=== PATIENT | female | born 1960 | race Asian ===

== ENCOUNTER 2019-05-07 12:56 | Emergency (ER) | payer SELFPAY ==
--- NOTE | 2019-05-07 13:05 | ED ---
Psychiatric Complaint - HPI Summary HPI Summary: This pt is a 59 Y/O F brought in by EMS to [facility] for an attempted suicide due to depression and recent stress, that occurred [employer]. The pt states that she has recently moved to [place] and has not been able to fit in with her community. She also has been having financial troubles back in [place] due to moving into a new house. Her son states that she owes the bank a lot of money. She recently found out that her son got and does not approve of the marriage and has been having difficulties with coming to terms about it. Her son states that she was venting about how difficult her life was and stating that she wanted a grandchild and her son wasnt able to give her that. She states that she is present in [place] for another month before heading home. She states that she does not have enough time to talk to her son due to his job. She states that after all these factors came together she attempted to strangle herself with her necklace before her son called EMS. Her son states that she was pulling her hair out and hitting herself in the head with a shoe. She also was lying on the ground hitting the ground. She states that she was shocked that her son reported her to the police. She states that she feels very embarrassed and ashamed. She states that she has no previous or chronic psychiatric illness. She has never been admitted to a hospital. She states that she takes sleeping pills occasionally. She denies any SOB, CP, SI, HI, headaches, fevers, chills, N /V, abdominal pains, and weakness. She states that she has had no alleviating factors. She states that she wants no additional check-up here since she is home in about a month. Her medications and allergies were reviewed. Her son states that she was recommended to be hospitalized for mental health issues. - History Of Current Complaint Hx Obtained From: Patient, Forging Roll Operator - Kavitha ?: No Onset/Duration: Gradual Onset - 2 months, since arriving in [place] Timing: Constant Severity Initially: Moderate Severity Currently: Severe Character: Depressed Aggravating Factor(s): Recent Stress Alleviating Factor(s): Nothing Related History: Negative For: Prior Psychiatric Issues Has Suicidal: Reports: Has Prior Attempt(s) - 1 attmept, states that she tried to strangle herself with her necklace [employer].. Denies: Thoughts, With A Plan Has Homicidal: Denies: Thoughts, With A Plan Recent Stressor(s): issues with [id number], being unable to speak upper sorbian, - Allergies/Home Medications Allergies/Adverse Reactions: Allergies Allergy/AdvReac Type Severity Reaction Status Date / Time No Known Allergies Allergy Verified 05/07/19 13:30 Home Medications: Home Medications NK [No Home Medications Reported] 05/07/19 [History Confirmed 05/07/19] PMH/Surg Hx/FS Hx/Imm Hx Previously Healthy: Yes Endocrine/Hematology History: Denies: Hx Diabetes Cardiovascular History: Reports: Hx Hypertension Sensory History: Denies: Hx Contacts or Glasses, Hx Legally Blind Opthamlomology History: Denies: Hx Contacts or Glasses, Hx Legally Blind Psychiatric History: Denies: Hx Inpatient Treatment, Hx Suicide Attempt - Surgical History Surgical History: None Infectious Disease History: Denies: Traveled Outside the [place] in Last 30 Days - Family History Known Family History: Positive: Hypertension - Social History Occupation: Retired Lives: With Family Alcohol Use: None Hx Substance Use: No Substance Use Type: Reports: None Hx Tobacco Use: No Smoking Status (MU): Never Smoked Tobacco Review of Systems Negative: Fever, Chills Negative: Chest Pain Negative: Shortness Of Breath Negative: Abdominal Pain, Vomiting, Nausea Musculoskeletal: Negative - neck pain Negative: Headache, Weakness Psychological: Other - stressed, embarassed, ashamed Positive: Depressed, Other - Negative: SI and HI All Other Systems Reviewed And Are Negative: Yes Physical Exam Triage Information Reviewed: Yes Vital Signs Reviewed: Yes Re-Evaluation - Re-Evaluation First Eval Re-Evaluation Time: 13:24 Comment: Her son states that her plane ticket will be changed to a sooner date Course/Dx - Course Course Of Treatment: Patient is here after getting in an argument with her son and doing some self harm. Patient denies any suicidal thoughts or actions here. Patient is from [place] and is having a hard time assimilating the culture and excepting her son's partner. Patient was involved by psychiatry who deemed her safe for discharge. - Differential Dx/Clinical Impression Provider Diagnosis: Mood disorder - Physician Notifications Discussed Care Of Patient With: Wilder Greene Time Discussed With Above Provider: 15:14 Instructed by Provider To: Other - discharge Discharge ED - Sign-Out/Discharge Documenting (check all that apply): Patient Departure - discharge Patient Received Moderate/Deep Sedation with Procedure: No - Discharge Plan Condition: Stable Disposition: HOME Referrals: No Primary Care Phys,NOPCP [Primary Care Provider] - - Billing Disposition and Condition Condition: STABLE Disposition: Home - Attestation Statements Document Initiated by Scribe: Yes Documenting Scribe: Shaggy Osuna Provider For Whom Scribe is Documenting (Include Credential): Brown Navarrete Scribe Attestation: Shaggy Garber, scribed for Brown Navarrete on 05/07/19 at 1638. Scribe Documentation Reviewed: Yes Provider Attestation: The documentation as recorded by the Shaggy fallon accurately reflects the service I personally performed and the decisions made by Brown clement Status of Scribe Document: Viewed
[2019-05-07 15:24] VITALS: BP 150/75
== END 2019-05-07 15:23 | disposition home or self-care (01) ==
LOC: ED 12:56
DX: F39 Unspecified mood [affective] disorder (principal); F32.9 Major depressive disorder, single episode, unspecified; I10 Essential (primary) hypertension
CPT/HCPCS: 99285